=== PATIENT | male | born 1960 | race Caucasian/White ===

== ENCOUNTER 2021-04-17 02:37 | Emergency (ER) | payer OTHER ==
[2021-04-17 02:56] VITALS: BMI 24.5
[2021-04-17 03:38] LABS: BASO % 0.5 % (0-2.0); EOS % 1.5 % (0-4.5); HEMATOCRIT 42.9 % (35.4-49); HEMOGLOBIN 14.2 GM/dL (11.7-16.9); LYMPH % 17.5 % (8-40); MCH 27.7 pg (25.7-33.7); MCHC 33.1 g/dl (32.0-35.9); MEAN CELL VOLUME 83.8 fl (80-96); MEAN PLT VOLUME 8.4 fl (7.5-11.1); NEUT % 74.5 % (42.8-82.8); PLATELET COUNT 182 K/MM3 (134-434); RBC 5.12 M/mm3 (4.00-5.60); RDW 12.9 % (11.9-15.9); WHITE BLOOD COUNT 7.3 K/mm3 (4.0-10.0)
[2021-04-17 03:57] LABS: CHLORIDE 107 mmol/L (98-107); SODIUM 141 mmol/L (136-145)
[2021-04-17 03:59] LABS: CALCIUM 9.3 mg/dL (8.5-10.1)
[2021-04-17 04:00] LABS: ALBUMIN 4.1 g/dl (3.4-5.0); ANION GAP 7 MMOL/L (8-16); BLOOD UREA NITROGEN 24.8 mg/dL (7-18); CO2 28 mmol/L (21-32)
[2021-04-17 04:03] LABS: SGOT/AST 21 U/L (15-37); SGPT/ALT 31 U/L (13-61)
[2021-04-17 04:05] LABS: BILIRUBIN,TOTAL 0.2 mg/dL (0.2-1); TOT PROT 7.3 g/dl (6.4-8.2)
[2021-04-17 04:06] LABS: ALK PHOS 55 U/L (45-117)
[2021-04-17 04:12] LABS: LACTIC ACID 2.6 mmol/L (0.4-2.0)
[2021-04-17 04:36] LABS: GLUCOSE,RANDOM 107 mg/dL (74-106)
[2021-04-17] MEDS ORDERED: SODIUM CHLORIDE 0.9% 500 ML INFUS.BAG IV ONE (04:37)
[2021-04-17] MEDS ORDERED: levETIRAcetam 500 MG/5 ML INJECTION VIAL IVPB ONE ×2 (05:54→05:57)
[2021-04-17 07:02] VITALS: TEMP 98.6
[2021-04-17] MEDS ORDERED: ACETAMINOPHEN 325 MG TABLET (FP) PO ONE (08:54)
[2021-04-17] MEDS ORDERED: ACETAMINOPHEN 325 MG TABLET (FP) ONE (08:57)
[2021-04-17 11:00] VITALS: BP 109/81; PULSE 71
== END 2021-04-17 11:23 | disposition home or self-care (01) ==
LOC: JER 02:37
PROC: 3E033GC Introduction of Other Therapeutic Substance into Peripheral Vein, Percutaneous Approach (ICD-10-PCS; principal; 2021-04-17)
DX: G40.89 Other seizures (principal)
CPT/HCPCS: 36415; 70450-TC; 71045-TC-FY; 80053; 82550; 82553; 82962; 83605; 84484; 85025; 93005; 93010; 99285-25

== ENCOUNTER 2023-09-15 20:08 | Emergency (ER) | payer BC, OTHER ==
[2023-09-15 20:13] VITALS: RESP 20; TEMP 98.3; BMI 25.2
[2023-09-15] MEDS ORDERED: KETOROLAC TROMETHAMINE 10 MG TABLET PO ONE (20:53)
[2023-09-15] MEDS ORDERED: KETOROLAC TROMETHAMINE 15 MG/ML VIAL IVPUSH ONE (21:02)
[2023-09-15 21:07] LABS: PH,URINE 5.5 (5.0-8.0); URINE APPEARANCE CLEAR; URINE BILIRUBIN NEGATIVE (NEGATIVE); URINE COLOR YELLOW; URINE GLUCOSE (UA) NEGATIVE (NEGATIVE); URINE KETONE NEGATIVE (NEGATIVE); URINE LEUK ESTERASE NEGATIVE (NEGATIVE); URINE NITRITE NEGATIVE (NEGATIVE); URINE PROTEIN NEGATIVE (NEGATIVE); URINE UROBILINOGEN 0.2 mg/dL (0.2-1.0)
[2023-09-15 21:20] LABS: BASO % 0.1 % (0-2.0); HEMATOCRIT 40.5 % (35.4-49); HEMOGLOBIN 13.8 GM/dL (11.7-16.9); LYMPH % 3.2 % (8-40); MCH 28.2 pg (25.7-33.7); MEAN CELL VOLUME 83.1 fl (80-96); MEAN PLT VOLUME 8.6 fl (7.5-11.1); MONO % 5.8 % (3.8-10.2); NEUT % 90.9 % (42.8-82.8); PLATELET COUNT 221 10^3/uL (134-434); RBC 4.87 M/mm3 (4.00-5.60); RDW 13.2 % (11.9-15.9)
[2023-09-15] MEDS ORDERED: KETOROLAC TROMETHAMINE 15 MG/ML VIAL ONE (21:24)
[2023-09-15 21:40] LABS: POTASSIUM 3.9 mmol/L (3.5-5.1)
[2023-09-15 21:42] LABS: ALBUMIN 3.7 g/dl (3.4-5.0); BLOOD UREA NITROGEN 12.7 mg/dL (7-18)
[2023-09-15 21:45] LABS: CREATININE 1.1 mg/dL (0.55-1.3)
[2023-09-15] MEDS ORDERED: SODIUM CHLORIDE 1,000 ML IV STA (21:46)
[2023-09-15 21:47] LABS: BILIRUBIN,TOTAL 0.8 mg/dL (0.2-1); TOT PROT 7.6 g/dl (6.4-8.2)
[2023-09-15 22:29] VITALS: BP 136/87; PULSE 64
== END 2023-09-15 23:46 | disposition home or self-care (01) ==
LOC: JER 20:08
PROC: 3E0333Z Introduction of Anti-inflammatory into Peripheral Vein, Percutaneous Approach (ICD-10-PCS; principal; 2023-09-15)
PROC: 3E0337Z Introduction of Electrolytic and Water Balance Substance into Peripheral Vein, Percutaneous Approach (ICD-10-PCS; 2023-09-15)
PROC: 3E0337Z Introduction of Electrolytic and Water Balance Substance into Peripheral Vein, Percutaneous Approach (ICD-10-PCS; 2023-09-15)
DX: R10.30 Lower abdominal pain, unspecified (principal); R33.9 Retention of urine, unspecified; R11.0 Nausea; R30.0 Dysuria; N40.1 Benign prostatic hyperplasia with lower urinary tract symptoms
CPT/HCPCS: 36415; 80053; 81003; 83605; 83690; 85025; 87086; 99284-25

== ENCOUNTER 2024-07-06 11:01 | Observation (INO) | payer BC ==
[2024-07-06 11:07] VITALS: BMI 25.3
[2024-07-06] MEDS ORDERED: ASPIRIN 325 MG TABLET ONE (11:40)
[2024-07-06] MEDS: ASPIRIN 81 MG CHEWABLE TABLETS PO ONE (11:51)
[2024-07-06 12:00] LABS: BASO % 0.3 % (0-2.0); EOS % 1.8 % (0-4.5); HEMATOCRIT 42.5 % (35.4-49); HEMOGLOBIN 14.5 GM/dL (11.7-16.9); LYMPH % 20.5 % (8-40); MCH 28.6 pg (25.7-33.7); MEAN CELL VOLUME 84.1 fl (80-96); MONO % 5.4 % (3.8-10.2); PLATELET COUNT 200 10^3/uL (134-434); RBC 5.05 M/mm3 (4.00-5.60); RDW 13.3 % (11.9-15.9); WHITE BLOOD COUNT 5.3 K/mm3 (4.0-10.0)
[2024-07-06 12:25] LABS: POTASSIUM 4.6 mmol/L (3.5-5.1)
[2024-07-06 12:27] LABS: ALBUMIN 4.2 g/dl (3.4-5.0); CALCIUM 9.5 mg/dL (8.5-10.1)
[2024-07-06 12:28] LABS: BLOOD UREA NITROGEN 16.6 mg/dL (7-18)
[2024-07-06 12:32] LABS: BILIRUBIN,TOTAL 0.7 mg/dL (0.2-1); TOT PROT 7.4 g/dl (6.4-8.2)
[2024-07-06] MEDS ORDERED: ACETAMINOPHEN 500 MG TABLET (FP) PO PRN (13:09)
[2024-07-06 23:11] VITALS: RESP 16
[2024-07-07 05:55] VITALS: BP 122/63; PULSE 52; TEMP 97.7
[2024-07-07] MEDS: PANTOPRAZOLE 20 MG TABLET PO SCH (09:31)
== END 2024-07-07 13:36 | disposition home or self-care (01) ==
LOC: JER 11:01 → JERBED 13:19 → J4S 14:45
PROVIDERS: ADMIT Internal Medicine; ATTEND Internal Medicine
DX: G44.209 Tension-type headache, unspecified, not intractable (principal); G47.00 Insomnia, unspecified; E78.5 Hyperlipidemia, unspecified; R07.9 Chest pain, unspecified; R73.03 Prediabetes; R55 Syncope and collapse
CPT/HCPCS: 0241U-QW; 36415; 71046-TC-FY; 80053; 83690; 84484; 85025; 93005; 93010; 99285-25; G0378